=== PATIENT | male | born 1980 | race Caucasian/White ===

== ENCOUNTER 2017-03-10 15:26 | Emergency (ER) | payer MEDICAID ==
[2015-01-29 12:08] VITALS: BMI 36.8
[~2017-03-10 15:26] MED LIST: CHILDREN'S ASPI81 MG PO; CLEOCIN HCL300 MG PO; CYCLOBENZAPRINE10 MG PO; DOXYCYCLINE HY100 M2 PO; HYDROCODONE-APA1 TAB PO; IBUPROFEN800 MG PO; KLONOPIN1 MG PO; LEXAPRO10 MG PO; PERCOCET 10/3251 TA1 PO; SOMA350 MG PO; TENORMIN25 MG PO
== END 2017-03-10 18:46 | disposition left against medical advice (07) ==
LOC: D.ER 15:26
DX: L02.416 Cutaneous abscess of left lower limb (principal)

== ENCOUNTER 2017-03-11 06:23 | Emergency (ER) | payer MEDICAID ==
[2015-01-29 12:08] VITALS: BMI 36.8
== END 2017-03-11 07:30 | disposition home or self-care (01) ==
LOC: D.ER 06:23
DX: L02.416 Cutaneous abscess of left lower limb (principal); B95.62 Methicillin resistant Staphylococcus aureus infection as the cause of diseases classified elsewhere

== ENCOUNTER 2017-04-19 13:48 | Emergency (ER) | payer MEDICAID ==
[2015-01-29 12:08] VITALS: BMI 36.8
== END 2017-04-19 16:14 | disposition home or self-care (01) ==
LOC: D.ER 13:48
DX: S62.317A Displaced fracture of base of fifth metacarpal bone, left hand, initial encounter for closed fracture (principal); X58.XXXA Exposure to other specified factors, initial encounter; Y93.89 Activity, other specified; Y92.029 Unspecified place in mobile home as the place of occurrence of the external cause; J20.9 Acute bronchitis, unspecified; F17.200 Nicotine dependence, unspecified, uncomplicated

== ENCOUNTER 2017-10-17 05:38 | Emergency (ER) | payer SELFPAY ==
[2015-01-29 12:08] VITALS: BMI 36.8
== END 2017-10-17 06:16 | disposition home or self-care (01) ==
LOC: D.ER 05:38
DX: M51.26 Other intervertebral disc displacement, lumbar region (principal); M54.31 Sciatica, right side; F17.200 Nicotine dependence, unspecified, uncomplicated

== ENCOUNTER 2017-11-05 13:19 | Emergency (ER) | payer SELFPAY ==
[2015-01-29 12:08] VITALS: BMI 36.8
== END 2017-11-05 16:13 | disposition home or self-care (01) ==
LOC: D.ER 13:19
DX: M54.5 Low back pain (principal); M54.16 Radiculopathy, lumbar region; I10 Essential (primary) hypertension; Z91.19 Patient's noncompliance with other medical treatment and regimen; F17.200 Nicotine dependence, unspecified, uncomplicated

== ENCOUNTER 2017-11-27 22:26 | Emergency (ER) | payer MEDICAID ==
[2015-01-29 12:08] VITALS: BMI 36.8
== END 2017-11-27 23:30 | disposition home or self-care (01) ==
LOC: D.ER 22:26
DX: M54.5 Low back pain (principal); M79.604 Pain in right leg; I10 Essential (primary) hypertension

== ENCOUNTER 2018-06-11 22:41 | Emergency (ER) | payer SELFPAY ==
[~2018-06-11] VITALS: Ht 185.4 cm; Wt 125.5 kg
[2018-06-11 22:47] VITALS: Ht 185.4 cm; Wt 125.5 kg
[2018-06-11] MEDS ORDERED: KEFLEX500 MG PO (23:06)
[2018-06-11] MEDS ORDERED: CLEOCIN HCL300 MG PO (23:06)
[2018-06-11 23:23] VITALS: BP 147/92
== END 2018-06-11 23:23 | disposition home or self-care (01) ==
LOC: D.ER 22:41
DX: L03.116 Cellulitis of left lower limb (principal); G40.909 Epilepsy, unspecified, not intractable, without status epilepticus; I10 Essential (primary) hypertension; F17.200 Nicotine dependence, unspecified, uncomplicated

== ENCOUNTER 2018-08-07 11:07 | Emergency (ER) | payer MEDICAID ==
[~2018-08-07] VITALS: Ht 185.4 cm; Wt 120.0 kg
[2018-08-07 11:07] VITALS: Ht 185.4 cm; Wt 120.0 kg
[~2018-08-07 11:07] MED LIST changes: +KEFLEX500 MG PO
[2018-08-07] MEDS ORDERED: NORCO 10-325 TA1 TAB PO (11:18)
[2018-08-07] MEDS ORDERED: ROBAXIN500 MG PO (12:11)
[2018-08-07] MEDS ORDERED: VOLTAREN75 MG PO (12:11)
[2018-08-07] MEDS ORDERED: PREDNISONE20 MG PO (13:36)
[2018-08-07 13:50] VITALS: BP 136/79
== END 2018-08-07 13:50 | disposition home or self-care (01) ==
LOC: D.ER 11:07
DX: S39.012A Strain of muscle, fascia and tendon of lower back, initial encounter (principal); X50.0XXA Overexertion from strenuous movement or load, initial encounter; Y93.89 Activity, other specified; Y92.89 Other specified places as the place of occurrence of the external cause; M62.830 Muscle spasm of back

== ENCOUNTER 2018-08-10 23:51 | Emergency (ER) | payer SELFPAY ==
[~2018-08-10 23:51] MED LIST changes: +NORCO 10-325 TA1 TAB PO; +PREDNISONE20 MG PO; +ROBAXIN500 MG PO; +VOLTAREN75 MG PO
[2018-08-10 23:59] VITALS: BP 152/80; Ht 185.4 cm
== END 2018-08-11 00:55 | disposition left against medical advice (07) ==
LOC: D.ER 23:51
DX: M54.9 Dorsalgia, unspecified (principal); I10 Essential (primary) hypertension; F17.200 Nicotine dependence, unspecified, uncomplicated

== ENCOUNTER 2018-10-14 09:25 | Emergency (ER) | payer MEDICAID ==
[~2018-10-14] VITALS: Ht 185.4 cm; Wt 104.5 kg
[2018-10-14 09:33] VITALS: BP 127/105; Ht 185.4 cm; Wt 104.5 kg
== END 2018-10-14 11:25 | disposition home or self-care (01) ==
LOC: D.ER 09:25
DX: M54.16 Radiculopathy, lumbar region (principal); M25.551 Pain in right hip; I10 Essential (primary) hypertension; F41.8 Other specified anxiety disorders; F17.210 Nicotine dependence, cigarettes, uncomplicated